=== PATIENT | male | born 1950 | race Caucasian/White ===

== ENCOUNTER 2024-02-05 09:05 | Emergency (ER) | payer MEDICARE, SELFPAY ==
[2024-02-05 09:05] VITALS: BP 129/90
--- NOTE | 2024-02-05 09:30 | ED.GENMED ---
History of Present Illness
General
Chief Complaint: Breathing Problem
Source: patient
Time Seen by Provider: 02/05/24 09:20
History of Present Illness
History of Present Illness:
73-year-old male with past medical history of coronary artery disease and hypothyroidism presenting to the emergency department for evaluation after he started feeling unwell for last 5 days with cough, shortness of breath and low-grade fever with
Tmax of 100 this past Friday but afebrile since. He reports multiple people at home are ill including his granddaughter who had similar symptoms, patient's daughter and both have GI related illness as well. No recent travel or recent
antibiotics. Patient states at nighttime his breathing seems to be a little bit worse and his reports 'hearing a rattling in his chest'. Patient woke up this morning stating he felt a little bit worse which is what prompted him to come to the
ER. He notes taking 3 separate COVID tests which were all negative.
Past History
Past History
ED Past Medical History: CAD and Hypothyroidism
ED Past Surgical History: Cardiac and Orthopedic
Social History
Tobacco: Former smoker
Alcohol: Occasional
Drug: None
Personal:
Living: with family
Review of Systems
Review of Systems
All Other Systems: ROS reviewed and negative except as documented in HPI and ROS
Phy Exam
Physical Exam
Physical Exam:
GENERAL: Alert , in no apparent distress
EYE: conjunctiva clear
NECK: Supple
ENT: o/p clr, mmm.
CARDIAC: Regular rate and rhythm
LUNGS: Clear breath sounds bilaterally, no acute respiratory distress, no wheezes/rales/rhonchi
NEUROLOGICAL: Alert and oriented
SKIN: Warm and dry, skin intact.
MUSCULOSKELETAL: well perfused.
PSYCH: Normal and appropriate interaction.
Scores
Heart Failure Risk
Heart Failure Risk Score: Not Applicable
Heart Score for Chest Pain Patients
STEMI patient?: Not applicable
Withdrawal Assessment of Alcohol
Withdrawal Assessment Completed?: Not applicable
Course
Orders/Labs/Results
Orders:
Orders
02/05/24 09:24
CR Chest - 2 Views Urgent
Comment:
Reason For Exam: cough x 5 days
02/05/24 09:31
Influenza A+B Rapid Molecular Urgent
CRISTOPHER Source: Nasal Swab
Specimen Description:
Vital Signs
Initial and Last Documented VS:
Initial Vital Signs
Temp Pulse Resp BP Pulse Ox
98.0 F 77 16 129/90 99
02/05/24 09:05 02/05/24 09:05 02/05/24 09:05 02/05/24 09:05 02/05/24 09:05
Last Documented Vital Signs
Temp Pulse Resp BP Pulse Ox
98.0 F 77 16 129/90 98
02/05/24 09:05 02/05/24 09:05 02/05/24 09:05 02/05/24 09:05 02/05/24 09:35
MDM/Problems Addressed
Differential Diagnosis Includes:
Flu or other viral etiology, pneumonia, no concern for cardiac etiology
MDM/Problems Addressed:
73-year-old male presenting to the ER for cold and flulike symptoms that are ongoing for about 5 days, today felt a little bit worse prompting his ER visit. Patient is afebrile on arrival here, otherwise well-appearing and in no acute respiratory
distress. Patient's lungs clear to auscultation. He has had 3 sets negative COVID test making COVID an unlikely diagnosis. Will check for flu and chest x-ray for any signs of pneumonia. Anticipate discharge home.
*Radiology
Radiology exam reviewed: preliminary read by ED provider (Unremarkable chest x-ray.)
*Pulse Oximetry
Patient hypoxic: no
*Critical Care Note
Total Time (30-74mins, 75-104mins- exclusive of procedures): Not Applicable
Patient Management
Escalation/DeEscalation of care consider admission/obs:
Patient tested positive for flu A. Chest x-ray unremarkable. He stable for discharge home. Given he has been symptomatic for the last 5 days he is not a candidate for Tamiflu. Continue [id number] medications and supportive measures. Aware
of return precautions.
ED Attending Note
-
Portions of this chart may have been created with voice recognition software.� Occasional wrong word or��sound alike� substitutions may have occurred due to the inherent limitations of voice recognition software.
Discharge Plan
Departure
Patient Disposition: Home (Routine Discharge)
Date of Disposition: 02/05/24
Time of Disposition: 10:01
Patient with high blood pressure during this ER visit?: No
Discharge Problem:
Influenza A
Instructions: Flu in adults - Discharge instructions
Prescriptions:
New
albuterol sulfate 90 mcg/actuation HFA aerosol inhaler
2 puff inhalation QID Qty: 6.7 0RF
No Action
levothyroxine 100 MCG tablet
100 mcg PO DAILY
omeprazole 20 MG capsule,delayed release(DR/EC)
20 mg PO Q48H
acetaminophen 325 MG tablet
650 mg PO Q4HPRN PRN (Reason: mild- mod pain/STONE/temp> 100.4F) 0RF
aspirin [[facility] Aspirin] 81 MG tablet,chewable
81 mg PO DAILY
Referrals:
Michael Montalvo DO [Family Provider] -
Interventions
Interventions:
*Risk Screen - Suicide Last Done: 02/05/24 09:05
*General Assessment Last Done: 02/05/24 09:05
*Neglect/Abuse Screening Last Done: 02/05/24 09:05
ED- Fall Risk Assessment Last Done: 02/05/24 09:35
*ED COVID-19 Vaccine History Last Done: 02/05/24 09:05
*Nursing Disposition Last Done: 02/05/24 10:04
ED- Cardiac Assessment Last Done: 02/05/24 09:35
ED- Pulmonary Assessment Last Done: 02/05/24 09:35
Discharge Date and Time
Discharge Date/Time: 02/05/24 10:05
Print Language: BELARUSIAN
== END 2024-02-05 10:05 | disposition home or self-care (01) ==
LOC: EMR 09:05
PROVIDERS: EMERGENCY PHYSICIAN Emergency Medicine; FAMILY PHYSICIAN Family Medicine
DX: J10.1 Influenza due to other identified influenza virus with other respiratory manifestations (principal); I25.10 Atherosclerotic heart disease of native coronary artery without angina pectoris; E03.9 Hypothyroidism, unspecified; Z87.891 Personal history of nicotine dependence
CPT/HCPCS: 99283; 71046; 87502